=== PATIENT | male | born 1990 | race Caucasian/White ===

== ENCOUNTER 2016-10-09 11:42 | Emergency (ER) | payer BC ==
[~2016-10-09] VITALS: Ht 175.3 cm; Wt 117.9 kg
--- NOTE | ~2016-10-09 | EKG ---
PATIENT: ROSSY DIOR UNIT #: [id number] Ventricular Rate: 63 BPM Atrial Rate: 63 BPM P-R Interval: 156 ms QRS Duration: 120 ms Q-T Interval: 412 ms QTC Calculation(Bezet): 421 ms P [place]: 37 degrees Calculated R [place]: 16 degrees Calculated T [place]: 34 degrees Diagnosis Line: Normal sinus rhythm Diagnosis Line: Non-specific intra-ventricular conduction delay Diagnosis Line: Borderline ECG Diagnosis Line: When compared with ECG of 09-OCT-2016 11:46, Diagnosis Line: (unconfirmed) Diagnosis Line: Vent. rate has decreased BY 38 BPM Diagnosis Line: QT has shortened Diagnosis Line: Confirmed by JONH TIMMONS MD ([id number]) on Diagnosis Line: 10/10/2016 1:50:56 PM INTERPRETING MD: SHANELLE BERNARDO
--- NOTE | ~2016-10-09 | EKG ---
PATIENT: ROSSY DIOR UNIT #: [id number] Ventricular Rate: 101 BPM Atrial Rate: 101 BPM P-R Interval: 152 ms QRS Duration: 120 ms Q-T Interval: 372 ms QTC Calculation(Bezet): 482 ms P [place]: 59 degrees Calculated R [place]: 11 degrees Calculated T [place]: 48 degrees Diagnosis Line: Sinus tachycardia Diagnosis Line: Non-specific intra-ventricular conduction delay Diagnosis Line: Borderline ECG Diagnosis Line: No previous ECGs available Diagnosis Line: Confirmed by JONH TIMMONS MD ([id number]) on Diagnosis Line: 10/10/2016 1:50:53 PM INTERPRETING MD: SHANELLE BERNARDO
--- NOTE | ~2016-10-09 | CT16 ---
[facility] A Service of [facility] RADIOLOGY TEXT RESULTS PATIENT: ROSSY DIOR LOCATION: SED : 90 UNIT #: [id number] AGE: [address]: Leo Arriaga MD SEX: M ORDER DR: [id number] [address] [address] [id number] MR#: [id number] Acc #: [id number] NAME: ROSSY DIOR : 1990 SEX: M STUDY DATE/TIME: 10/09/2016 15:33 UNIT: SED ROOM: STUDY DESCRIPTION: CT Angio Chest for PE Attending Physician: Leo Arriaga M.D. Ordering Physician: Leo Arriaga M.D. Primary Care Physician: Dorian Jordan M.D. MEDICAL IMAGING REPORT This report is preliminary unless electronic signature is present. EXAM CTA chest with contrast, 10/09/2016 HISTORY 26-year-old male with left-sided chest pain radiating to back for 4 days. COMPARISON None TECHNIQUE Helical scan performed through the chest following the timed bolus administration of IV contrast per PE protocol. Coronal 3-D MIP reconstructions. Sagittal reformatted images. This CT exam was performed with one or more of the following radiation dose reduction techniques: automatic exposure control, adjustment of mA and/or kV according to patient size, and iterative reconstruction. FINDINGS There is adequate opacification of the pulmonary arteries and no filling defects noted. Thoracic aorta normal in course and caliber without dissection. Heart size normal. No pericardial effusion. No pleural effusions. No pneumothorax. No parenchymal infiltrates. Scanning through the upper abdomen demonstrates a small hypoattenuating lesion in the right hepatic dome. This is too small to characterize on today's exam and can be further evaluated with non-emergent multiphase CT or MRI when the patient is clinically able. No acute bony abnormality. IMPRESSION 1. Negative for pulmonary emboli. 2. Negative for thoracic aortic aneurysm/dissection. [facility] A Service [facility] RADIOLOGY TEXT RESULTS PATIENT: ROSSY DIOR LOCATION: SED : 90 UNIT #: [id number] AGE: [address]: Leo Arriaga MD SEX: M ORDER DR: 3. No acute pulmonary process. 4. Small hypoattenuating lesion in the visualized right hepatic dome which is too small to characterize on today's study. This can be further evaluated with a non-emergent multiphase CT or MRI when the patient is clinically able. Dictated by... Shemar Ovalle M.D. THIS IS AN ELECTRONICALLY VERIFIED REPORT Shemar Ovalle M.D. at 10/10/2016 10:40 AM Roge TD: 10/10/2016 08:39 JOB #: [id number] MEDICAL IMAGING REPORT Page 1 of 1
[~2016-10-09 11:42] MED LIST: DOXYCYCLINE PO; IBUPROFEN PO; MULTI-VITAMIN1 EAC1; PHENERGAN W/CO120 ML PO
[2016-10-09 12:27] LABS: POC - CKMB 1.1 ng/mL (0.0-7.9); POC - MYOGLOBIN 41.6 ng/mL (0.0-169.0); POC - TROPONIN <0.05 ng/mL (<=0.05)
[2016-10-09 12:47] LABS: BASOPHIL% 0.4 % (0-2.5); EOSINOPHIL# 0.3 X10e3 (0-0.7); EOSINOPHIL% 2.7 % (0.0-7.0); HEMATOCRIT 43.2 % (38.0-50.0); HEMOGLOBIN 15.5 gm/dL (13.0-16.0); LYMPHOCYTE# 3.7 X10e3 (1.0-3.5); LYMPHOCYTE% 37.6 % (17.0-45.0); MEAN CELL VOLUME 87.8 FL (83-96); MEAN CORPUSCULAR HEMOGLOBIN 31.5 PG (28-34); MEAN CORPUSCULAR HGB CONC 35.9 g/dL (30-36); MEAN PLATELET VOLUME 7.5 FL (6.5-11.5); MONOCYTE# 0.6 X10e3 (0-1.0); MONOCYTE% 5.8 % (3.0-12.0); NEUTROPHIL# 5.3 X10e3 (1.5-7.1); NEUTROPHIL% 53.5 % (40-75); PLATELET COUNT 336 X10e3 (140-420); RED BLOOD COUNT 4.92 X10e (3.90-5.60); RED CELL DISTRIBUTION WIDTH 13.1 % (11.0-15.5)
[2016-10-09 12:56] LABS: PROTHROMBIN TIME (PATIENT) 11.4 SECONDS (9.5-12.4)
[2016-10-09 13:03] LABS: PARTIAL THROMBOPLASTIN TIME 32.1 SECONDS (25.6-38.1)
[2016-10-09 13:05] LABS: DIFF IND NO
[2016-10-09 13:06] LABS: AMPHETAMINE NEG (NEG); BARBITURATES NEG (NEG); BENZODIAZEPINES NEG (NEG); COCAINE NEG (NEG); MARIJUANA POS (NEG); OPIATES NEG (NEG); TRICYCLIC ANTIDEPRESSANTS NEG (NEG); U METHADONE NEG (NEG)
[2016-10-09 13:10] LABS: ALBUMIN SERUM 4.7 g/dL (3.5-5.0); BILIRUBIN, DIRECT 0.1 mg/dL (0.0-0.2); BILIRUBIN,INDIRECT 0.6 mg/dL (0.0-0.9); BILIRUBIN,TOTAL 0.7 mg/dL (0.2-2.0); BUN/CREATININE RATIO 11.25; CALCIUM SERUM 9.6 mg/dL (8.4-10.2); CREATININE SERUM 0.8 mg/dL (0.6-1.4); GLOM FILT RATE Estimated 123.3 mL/min (>60); MAGNESIUM 2.2 mg/dL (1.6-3.0); POTASSIUM 3.1 mmol/L (3.5-5.1); PROTEIN TOTAL SERUM 7.5 g/dL (6.0-8.3)
[2016-10-09 13:50] LABS: POC - CKMB <1.0 ng/mL (0.0-7.9); POC - MYOGLOBIN 38.7 ng/mL (0.0-169.0); POC - TROPONIN <0.05 ng/mL (<=0.05)
== END 2016-10-09 17:16 | disposition home or self-care (01) ==
LOC: SED 11:42
PROVIDERS: Emergency Medicine
DX: M94.0 Chondrocostal junction syndrome [Tietze] (principal); F17.210 Nicotine dependence, cigarettes, uncomplicated; Z88.0 Allergy status to penicillin
CPT/HCPCS: 36415; 71275; 80048; 80076; 80307; 82553; 83735; 83874; 83880; 84484; 85025; 85610; 85730; 93005; 96360; 99285; Q9967